=== PATIENT | female | born 1990 | race Caucasian/White ===

== ENCOUNTER 2017-09-23 20:26 | Emergency (ER) | payer OTHER ==
[2017-09-23] MEDS ORDERED: methylPREDNISolone Sodium Succinate 125 MG/2 ML SDV IM ONE (21:46)
--- NOTE | 2017-09-23 21:52 | EDM.PDOC ---
ED HPI GENERAL MEDICAL PROBLEM - General Chief Complaint: ENT Problem Stated Complaint: POSSIBLE EAR INFECTION Time Seen by Provider: 09/23/17 21:30 Source of Information: Reports: Patient History Limitations: Reports: No Limitations - History of Present Illness INITIAL COMMENTS - FREE TEXT/NARRATIVE: HISTORY AND PHYSICAL: History of present illness: [Comes to the ER complaining of fullness in her ears, head congestion and drainage down the back of her throat. She has a history of nonallergic rhinitis but these symptoms feel worse than usual. She's had similar episodes in the past which have always resolved with prescribed medications. the patient cannot remember the name of the medication or the classification. no Fever or chills. She's had some equilibrium and balance issues, where she feels that she could fall over when she is walking sometimes. No runny nose or nasal discharge. No face pain but feels congested. She's had no cough or shortness of breath or difficulty breathing. No abdominal pain, nausea or vomiting. Patient will be traveling later this week and requests a prescription for scopolamine patches which she's had in the past. She sometimes struggles with motion sickness and is concerned that this may recur with her ear congestion.] Review of systems: As per history of present illness and below otherwise all systems reviewed and negative. Past medical history: As per history of present illness and as reviewed below otherwise noncontributory. Surgical history: As per history of present illness and as reviewed below otherwise noncontributory. Social history: No reported history of drug or alcohol abuse. Family history: As per history of present illness and as reviewed below otherwise noncontributory. Physical exam: HEENT: Atraumatic, normocephalic. TMs are pearly lemus and without erythema. Mild effusions present bilaterally. Canals are clear. Conjunctiva clear. Oral mucous membranes are pink and moist. Small amount of clear discharge present in the oropharynx. No tonsillar swelling erythema or exudate. Nares are erythematous and mildly swollen. No discharge. Neck supple, no swollen or tender lymph nodes. Lungs: Clear to auscultation, breath sounds equal bilaterally. Heart: S1S2, regular rate and rhythm. Abdomen: Soft, nondistended, nontender. Pelvis: Stable nontender. Genitourinary: Deferred. Rectal: Deferred. Extremities: Atraumatic Neurovascular unremarkable. Neuro: Awake, alert, oriented. Motor and sensory unremarkable throughout. Exam nonfocal. Therapeutics: [Solu-Medrol 125mg IM] Impression: [allergic rhinitis] Plan: [Rx written for scopolamine transdermal patch (#10) sig: apply 1 patch q 3 days prn motion sickness 0 RF's. Discussed with patient that she does not appear to have any infectious source causing her ear discomfort. Recommend decongestant and antihistamine. Patient seems quite anxious about her symptoms and the flight that she has scheduled for later this week. She is in agreement to receive a Solu-Medrol injection today. Establish care with a local PCP. Referral is given. Strict return precautions are discussed she is in agreement with today's plan.] Definitive disposition and diagnosis as appropriate pending reevaluation and review of above. bilateral ear pain Pain Score (Numeric/FACES): 8 - Related Data Allergies Allergy/AdvReac Type Severity Reaction Status Date / Time No Known Allergies Allergy Verified 09/23/17 20:53 Home Meds: Home Meds . [No Known Home Meds] 09/23/17 [History] Past Medical History HEENT History: Reports: None Cardiovascular History: Reports: Arrhythmia Respiratory History: Reports: None Gastrointestinal History: Reports: None Genitourinary History: Reports: None Musculoskeletal History: Reports: None Neurological History: Reports: None Psychiatric History: Reports: None Endocrine/Metabolic History: Reports: None Hematologic History: Reports: None Immunologic History: Reports: None Oncologic (Cancer) History: Reports: None Dermatologic History: Reports: None - Infectious Disease History Infectious Disease History: Reports: None - Past Surgical History Head Surgeries/Procedures: Reports: None Female Surgical History: Reports: Breast Reduction, Hysterectomy Social & Family History - Family History Family Medical History: Noncontributory - Tobacco Use Smoking Status *Q: Never Smoker - Caffeine Use Caffeine Use: Reports: Energy Drinks - Recreational Drug Use Recreational Drug Use: No ED ROS ENT - Review of Systems Review Of Systems: ROS reveals no pertinent complaints other than HPI. ED EXAM, ENT - Physical Exam Exam: See Below Course - Vital Signs Last Recorded V/S: Last Vital Signs Temp 98 F 09/23/17 20:53 Pulse 73 09/23/17 20:53 Resp 18 09/23/17 20:53 BP 107/62 09/23/17 20:53 Pulse Ox 98 09/23/17 20:53 - Orders/Labs/Meds Meds: Medications Discontinued Medications Generic Name Dose Route Start Last Admin Trade Name Nasim PRN Reason Stop Dose Admin Methylprednisolone Sodium Succinate 125 mg 09/23/17 21:46 Solu-Medrol IM 09/23/17 21:47 ONETIME ONE Departure - Departure Time of Disposition: 21:50 Disposition: Home, Self-Care 01 Condition: Good Clinical Impression: Allergic rhinitis - Discharge Information Referrals: PCP,None [Primary Care Provider] - Forms: ED Department Discharge Additional Instructions: The following information is given to patients seen in the emergency department who are being discharged to home. This information is to outline your options for follow-up care. We provide all patients seen in our emergency department with a follow-up referral. The need for follow-up, as well as the timing and circumstances, are variable depending upon the specifics of your emergency department visit. If you don't have a primary care physician on staff, we will provide you with a referral. We always advise you to contact your personal physician following an emergency department visit to inform them of the circumstance of the visit and for follow-up with them and/or the need for any referrals to a consulting specialist. The emergency department will also refer you to a specialist when appropriate. This referral assures that you have the opportunity for follow-up care with a specialist. All of these measure are taken in an effort to provide you with optimal care, which includes your follow-up. Under all circumstances we always encourage you to contact your private physician who remains a resource for coordinating your care. When calling for follow-up care, please make the office aware that this follow-up is from your recent emergency room visit. If for any reason you are refused follow-up, please contact the [facility] emergency department at and asked to speak to the emergency department charge nurse. [facility] [address] [place] [id number] Establish care with a local primary care provider at the clinic listed above. In follow-up later this week. Taking Sudafed and a daily allergy medication, such as an antihistamine, may be helpful. These are available [id number]. Return to ER as needed as discussed.
== END 2017-09-23 22:08 | disposition home or self-care (01) ==
LOC: MW.ED 20:26
DX: J30.9 Allergic rhinitis, unspecified (principal)
CPT/HCPCS: 96372; 99282; J2930